=== PATIENT | male | born 1950 | race Caucasian/White ===

== ENCOUNTER 2017-01-04 05:36 | Emergency (ER) | payer OTHER, BC ==
[2017-01-04 05:54] VITALS: TEMP 98.1; BMI 26.6
--- NOTE | 2017-01-04 06:03 | PDOC ---
History of Present Illness - General Stated Complaint: PAIN/FLANK Time Seen by Provider: 01/04/17 05:46 History Source: Patient Exam Limitations: No Limitations - History of Present Illness Initial Comments: This is a 66 yom with h/o kidney stones (uric acid; on allopurinol; last episode was 12 years ago), arthritis of the spine, and distant prior opiate addiction who presents c/o right flank pain. The pain began 6 days ago when he arrived into town and began sleeping on an uncomfortable hotel bed. It became acutely worse last night while he was sleeping, and he believes it is because of the position he slept in. The pain is 7/10, feels like a strong cramp, and does not radiate. It worsens with movement and he feels like he cannot get comfortable. He otherwise denies any recent symptoms - no fever, chills, nausea , vomiting, diarrhea, chest pain, shortness of breath, cough, abdominal pain, painful urination or other urinary symptoms. He has not taken any medication for this pain and has not had pain exactly like this before. Past History - Past Medical History Allergies/Adverse Reactions: Allergies Allergy/AdvReac Type Severity Reaction Status Date / Time doxycycline Allergy Verified 01/04/17 05:48 Home Medications: Ambulatory Orders Allopurinol [Zyloprim -] 100 mg PO DAILY 01/04/17 Amlodipine Besylate [Norvasc -] 5 mg PO DAILY 01/04/17 Benazepril HCl [Lotensin] 20 mg PO DAILY 01/04/17 Cholecalciferol (Vitamin D3) [Vitamin D3 -] 1,000 unit PO DAILY 01/04/17 Multivitamins [Tab-A-Vit -] 1 tab PO DAILY 01/04/17 Marion-3/Dha/Epa/Fish Oil [Fish Oil Conc 1,000 mg Softgel] 1,000 mg PO DAILY Rosuvastatin [Crestor -] 5 mg PO HS 01/04/17 Zolpidem Tartrate [Ambien Cr] 12.5 mg PO HS PRN 01/04/17 Review of Systems - Review of Systems Constitutional: No: Chills, Fever, Unexplained wgt Loss HEENTM: No: Nose Congestion, Throat Pain Respiratory: No: Cough, Shortness of Breath Cardiac (ROS): No: Chest Pain, Palpitations ABD/GI: No: Abdominal Distended, Constipated, Diarrhea, Nausea, Vomiting : Yes: Frequency (unchanged chronic), Flank Pain (right). No: Burning, Dysuria Musculoskeletal: Yes: Back Pain (right mid-back). No: Neck Pain Integumentary: No: Bruising, Rash Neurological: No: Headache, Numbness, Tingling, Weakness, Dizziness Endocrine: No: Unexplained Weight Gain, Unexplained Weight Loss *Physical Exam - Physical Exam General Appearance: Yes: Nourished, Appropriately Dressed, Other (well- appearing older male who is very conversive and answers questions appropriately , sitting on hospital bed and appears fairly comfortable). No: Apparent Distress HEENT: positive: EOMI, Normal Voice, Hearing Grossly Normal. negative: Scleral Icterus (R), Scleral Icterus (L), Nasal Congestion Neck: positive: Trachea midline, Supple. negative: Tender, Rigid Respiratory/Chest: positive: Lungs Clear, Normal Breath Sounds. negative: Chest Tender, Respiratory Distress, Crackles, Rhonchi, Stridor, Wheezing Cardiovascular: positive: Regular Rhythm, Regular Rate. negative: Murmur Gastrointestinal/Abdominal: positive: Normal Bowel Sounds, Soft, Protuberent ( mildly). negative: Tender, Organomegaly, Pulsatile Mass, Guarding Musculoskeletal: positive: Normal Inspection, CVA Tenderness (R) (right lateral CVA). negative: CVA Tenderness (L), Decreased Range of Motion, Vertebral Tenderness Extremity: positive: Normal Capillary Refill, Normal Inspection, Normal Range of Motion. negative: Tender, Cyanosis Integumentary: positive: Normal Color, Dry, Warm. negative: Erythema, Rash, Bruising Neurologic: positive: aviation mechanic II-XII NML intact (grossly), Fully Oriented, Alert, Normal Mood/Affect, Normal Response, Motor Strength 5/5 ED Treatment Course - LABORATORY CBC & Chemistry Diagram: 01/04/17 07:55 01/04/17 07:55 Medical Decision Making - Medical Decision Making 66 yom with h/o uric acid renal stones on allopurinol p/w right flank pain. Has been sleeping on very uncomfortable bed x6 days, pain worsening x6 days, no urinary sxs. Exam notable only for right lateral CVA tenderness. DDX includes muscle strain/sprain, obstructing renal stone/renal colic, pyelonephritis, cholecystitis, radiculopathy. Ordered is lidocaine patch (recurrent renal stones, likely kidney dysfunction, bad candidate for toradol). Also ordered is UA to assess for UTI/pyelo and hematuria. The patient has initial relief (about 30 minutes) with lidocaine patch but pain then begins to return. UA is negative, no hematuria at this time. Care is signed out to [facility] excellent Dr. Carla Chester. *DC/Admit/Observation/Transfer Diagnosis at time of Disposition: Back pain Qualifiers: Back pain location: back pain in unspecified location Chronicity: unspecified Back pain laterality: unspecified Qualified Code(s): M54.9 - Dorsalgia, unspecified - Discharge Dispostion Disposition: HOME Condition at time of disposition: Good - Patient Instructions Printed Discharge Instructions: Low Back Pain Additional Instructions: You were evaluated today for back pain. Please follow up with your primary care doctor as well as your rn enterostomal within the next week. You have been provided a copy of CT Scan, please take these results to your primary care doctor for follow up on your pulmonary nodules. Please return to the Emergency Department should you experience any chest pain, shortness of breath, fevers, or severe pain.
[2017-01-04] MEDS ORDERED: LIDOCAINE 5% TOPICAL PATCH TP ONE (06:06)
[2017-01-04] MEDS ORDERED: LIDOCAINE 5% TOPICAL PATCH ONE (06:09)
--- NOTE | 2017-01-04 06:12 | PDOC ---
Attending Attestation - Resident Resident Name: Bushra Abdi - ED Attending Attestation I have performed the following: I have examined & evaluated the patient, The case was reviewed & discussed with the resident, I agree w/resident's findings & plan, Exceptions are as noted <Nitin Alva - Last Filed: 01/04/17 06:11> - HPI HPI: 01/04/17 06:13 Pt is a 66 yo M with a PMHx of stage 3 kidney disease, HTN, HLD, Arthritis, Spondylitis who presents to the ED with R flank pain. Patient describes pain is 7/10 in severity, persistent, constant cramping and feels like "a muscular pain ". Patient denies any exacerbating or alleviating factors. Patient denies any GI symptoms. Patient has not taken any medications for relief. Patient states this does not feel like his kidney stones and presents to the ED for further evaluation. Surgical Hx: Full Shoulder replacement Social Hx: Former smoker (2002) Allergies: doxycycline - Medical Decision Making 01/04/17 06:16 Documentation prepared by Tamiko Lora, acting as medical transcriber for Nitin Alva DO. <Tamiko Lora - Last Filed: 01/04/17 06:20>
[2017-01-04 06:36] LABS: URINE APPEARANCE CLEAR; URINE BILIRUBIN NEGATIVE (NEGATIVE); URINE BLOOD NEGATIVE (NEGATIVE); URINE COLOR LTYELLOW; URINE GLUCOSE (UA) NEGATIVE (NEGATIVE); URINE KETONE NEGATIVE (NEGATIVE); URINE LEUK ESTERASE NEGATIVE (NEGATIVE); URINE NITRITE NEGATIVE (NEGATIVE); URINE PROTEIN NEGATIVE (NEGATIVE); URINE UROBILINOGEN NEGATIVE mg/dL (0.2-1.0)
[2017-01-04] MEDS ORDERED: ACETAMINOPHEN 500 MG TABLET (FP) PO ONE (07:25)
[2017-01-04] MEDS ORDERED: ACETAMINOPHEN 325 MG TABLET (FP) ONE (07:47)
[2017-01-04 08:08] LABS: MCH 30.8 pg (25.7-33.7); MCHC 33.8 g/dl (32.0-35.9); MEAN CELL VOLUME 91.1 fl (80-96); MEAN PLT VOLUME 7.9 fl (7.5-11.1); PLATELET COUNT 171 K/MM3 (134-434); RDW 13.4 % (11.9-15.9); WHITE BLOOD COUNT 5.1 K/mm3 (4.0-10.0)
[2017-01-04 08:28] LABS: ALBUMIN 3.8 g/dl (3.4-5.0); ANION GAP 3 (8-16); CALCIUM 9.2 mg/dL (8.5-10.1); CO2 29 mmol/L (21-32); CREATININE 1.5 mg/dL (0.7-1.3); GLUCOSE,RANDOM 99 mg/dL (74-106); SGPT/ALT 42 U/L (12-78); TOT PROT 7.2 g/dl (6.4-8.2)
[2017-01-04 08:29] LABS: ALK PHOS 57 U/L (45-117); SGOT/AST 47 U/L (15-37)
[2017-01-04] MEDS ORDERED: KETOROLAC TROMETHAMINE 15 MG/ML VIAL IM ONE (09:25)
[2017-01-04] MEDS ORDERED: KETOROLAC TROMETHAMINE 15 MG/ML VIAL ONE (09:55)
--- NOTE | 2017-01-04 11:05 | PDOC ---
*Physical Exam - Vital Signs Last Vital Signs Temp Pulse Resp BP Pulse Ox 98.1 F 72 18 130/92 96 01/04/17 05:47 01/04/17 05:47 01/04/17 05:47 01/04/17 05:47 01/04/17 05:47 - Physical Exam General Appearance: Yes: Nourished, Appropriately Dressed HEENT: positive: EOMI, JENNIFER Neck: positive: Trachea midline Respiratory/Chest: positive: Lungs Clear, Normal Breath Sounds Cardiovascular: positive: Regular Rhythm, Regular Rate, S1, S2 Gastrointestinal/Abdominal: positive: Normal Bowel Sounds, Soft Extremity: positive: Normal Capillary Refill, Tender Integumentary: positive: Normal Color, Dry, Warm Neurologic: positive: director of assessment II-XII NML intact, Fully Oriented, Alert ED Treatment Course - LABORATORY CBC & Chemistry Diagram: 01/04/17 07:55 01/04/17 07:55 - ADDITIONAL ORDERS Additional order review: Laboratory Results 01/04/17 01/04/17 07:55 06:18 Sodium 139 Potassium 5.1 Chloride 107 Carbon Dioxide 29 Anion Gap 3 L BUN 21 H Creatinine 1.5 H Creat Clearance w eGFR 46.68 Random Glucose 99 Calcium 9.2 Total Bilirubin 1.0 AST 47 H ALT 42 Alkaline Phosphatase 57 Total Protein 7.2 Albumin 3.8 Urine Color Ltyellow Urine Appearance Clear Urine pH 7.0 Urine Protein Negative Urine Glucose (UA) Negative Urine Ketones Negative Urine Blood Negative Urine Nitrite Negative Urine Bilirubin Negative Urine Urobilinogen Negative 01/04/17 07:55 RBC 5.94 H MCV 91.1 MCHC 33.8 RDW 13.4 MPV 7.9 - RADIOLOGY Radiology Studies Ordered: Category Date Time Status SPIRAL- RENAL-STONE CT [CT] Stat CT Scan 01/04/17 09:[address] W/O CONTRAST [CT] Stat CT Scan 01/04/17 07:47 Completed - Medications Given in the ED: ED Medications Discontinued Medications Generic Name Dose Route Start Last Admin Trade Name Freq PRN Reason Stop Dose Admin Acetaminophen 1,000 mg 01/04/17 07:25 01/04/17 07:59 Tylenol - PO 01/04/17 07:26 1,000 mg ONCE ONE Administration Ketorolac Tromethamine 15 mg 01/04/17 09:25 01/04/17 10:05 Toradol Injection - IM 01/04/17 09:26 15 mg ONCE ONE Administration Lidocaine 1 patch 01/04/17 06:06 01/04/17 06:26 Lidoderm Patch - TP 01/04/17 06:07 1 patch ONCE ONE Administration Medical Decision Making - Medical Decision Making 01/05/17 05:49 Patient is a 66 y.o. male who presents c/o of R sided flank pain with initial care provided by Dr. Bushra Abdi (Resident) and Dr. Nitin Alva (Attending) . Initial differential diagnosis included pyelonephritis vs. nephrolithiasis vs. muskoskeletal pain. UA negative and CT angiogram negative for nephrolithiasis. Patient's pain not well controlled with Lidocaine patch. As patient had a h/o multiple opioid addictions, pain control options were limited a one time dose of Toradol given at patient's request as patient has close follow up with philosophy specialist and his Cr was at 1.5 (as per patient baseline is 2) . CT angiogram did show a 4 mm pulmonary nodule. Patient given a copy of his CT scan and instructed to follow up with his PCP. *DC/Admit/Observation/Transfer Diagnosis at time of Disposition: Back pain Qualifiers: Back pain location: back pain in unspecified location Chronicity: unspecified Back pain laterality: unspecified Qualified Code(s): M54.9 - Dorsalgia, unspecified - Discharge Dispostion Disposition: HOME Condition at time of disposition: Good Admit: No - Patient Instructions Printed Discharge Instructions: Low Back Pain Additional Instructions: You were evaluated today for back pain. Please follow up with your primary care doctor as well as your philosophy specialist within the next week. You have been provided a copy of CT Scan, please take these results to your primary care doctor for follow up on your pulmonary nodules. Please return to the Emergency Department should you experience any chest pain, shortness of breath, fevers, or severe pain.
[2017-01-04 11:43] VITALS: BP 136/73; PULSE 62
[2017-01-04] MEDS ORDERED: LIDOCAINE PATCH REMOVAL MC SCH (22:00)
== END 2017-01-04 11:42 | disposition home or self-care (01) ==
LOC: JER 05:36
PROC: 3E0233Z Introduction of Anti-inflammatory into Muscle, Percutaneous Approach (ICD-10-PCS; principal; 2017-01-04)
DX: M54.89 Other dorsalgia (principal); I12.9 Hypertensive chronic kidney disease with stage 1 through stage 4 chronic kidney disease, or unspecified chronic kidney disease; N18.3 Chronic kidney disease, stage 3 (moderate); E78.00 Pure hypercholesterolemia, unspecified; M47.899 Other spondylosis, site unspecified
CPT/HCPCS: 36415; 72128-TC; 74176; 80053; 81003; 85027; 99282-25